=== PATIENT | male | born 1965 | race Caucasian/White ===

== ENCOUNTER 2021-06-15 15:50 | Emergency (ER) | payer MEDICAID ==
[~2021-06-15] VITALS: Ht 167.6 cm; Wt 65.9 kg
[2021-06-15] MEDS ORDERED: ACETAMINOPHEN 500 MG TABLET PO ONE (16:00)
[2021-06-15 16:18] LABS: COVID AG,FIA SOURCE NASOPHARYNGEAL
[2021-06-15 19:03] VITALS: BP 131/91
== END 2021-06-15 19:23 | disposition home or self-care (01) ==
LOC: EMS 15:53 → EDBD 15:53 → EMS 19:23
DX: U07.1 COVID-19 (principal)
CPT/HCPCS: 71045; 99285

== ENCOUNTER 2021-06-23 09:35 | Emergency (ER) | payer MEDICAID ==
[~2021-06-23] VITALS: Ht 165.1 cm; Wt 68.2 kg
[2021-06-23 09:44] VITALS: BP 151/103
== END 2021-06-23 12:36 | disposition left against medical advice (07) ==
LOC: EMS 09:35
DX: Z20.822 Contact with and (suspected) exposure to COVID-19 (principal); Z53.21 Procedure and treatment not carried out due to patient leaving prior to being seen by health care provider